=== PATIENT | female | born 1945 | race Caucasian/White ===

== ENCOUNTER 2022-08-05 10:17 | Emergency (ER) | payer OTHER, MEDICARE ==
[~2022-08-05] VITALS: Ht 170.2 cm; Wt 71.7 kg
[2022-08-05] MEDS ORDERED: LIPITOR10 MG GT (10:33)
== END 2022-08-05 11:13 | disposition home or self-care (01) ==
LOC: ED 10:17
DX: S63.91XA Sprain of unspecified part of right wrist and hand, initial encounter (principal); I10 Essential (primary) hypertension; W18.09XA Striking against other object with subsequent fall, initial encounter
CPT/HCPCS: 73130